=== PATIENT | male | born 1955 | race Caucasian/White ===

== ENCOUNTER → 2019-02-06 | Outpatient (CLI) | payer BC, OTHER ==
--- NOTE | 2019-02-07 06:32 | ECHO ---
DATE OF PROCEDURE: 02/06/2019 DATE OF : 1955 AGE: 64 REFERRING PROVIDER: Dr. Bobbi Wilcox PATIENT LOCATION: Outpatient. REASON FOR THE STUDY: Heart murmur. 2-D MEASUREMENTS: IVS: 1.2 cm LV: 4.1 cm LVPW: 1.2 cm LA: 4.5 cm Aorta: 3.7 cm IVC: 2.0 cm DOPPLER MEASUREMENTS: Peak velocity across the aortic valve: 1.3 m/s Peak velocity across the LVOT: 0.89 m/s Mitral E: 0.82, Mitral A: 0.9 with a ration of 0.9 Maximum tricuspid valve velocity: 2.6 m/s 2-D COMMENTS: 1. Normal left ventricular size with probably mildly increased left ventricular wall thickness. Left ventricular systolic function appeared to be normal, estimated at 60-65%. 2. Mildly enlarged left atrium. Normal right atrium and right ventricle. 3. The atrial septum appeared to be normal without evidence of defect or shunt. 4. Borderline enlarged aortic root at 3.7 cm. 5. Trace pericardial effusion noted, no evidence of cardiac tamponade. 6. Mildly calcified aortic valve with normal leaflet excursion. Normal mitral valve and tricuspid valve. The pulmonic valve appeared to be normal in limited views. The proximal pulmonary artery branches were not well visualized. 7. The inferior vena cava is mildly enlarged, central venous pressure might be elevated. DOPPLER: It detects mild mitral regurgitation and mild tricuspid regurgitation. The calculated pulmonary artery systolic pressure varies between 30-40 mmHg. Abnormal relaxation pattern was noted across the mitral valve leaflets as well as mitral valve annulus consistent with features of grade 1 left ventricular diastolic dysfunction. IMPRESSION: 1. Normal global left ventricular systolic function with probably mild concentric left ventricular hypertrophy. There are some features of grade 1 left ventricular diastolic dysfunction manifested by abnormal relaxation. 2. Aortic valve sclerosis without stenosis or aortic regurgitation. 3. Mild mitral regurgitation with a mildly enlarged left atrium. 4. Mild tricuspid regurgitation with probably mild pulmonary hypertension. 5. Trace pericardial effusion was noted, no evidence of cardiac tamponade. 6. The inferior vena cava was mildly enlarged. 7. Borderline enlarged aortic root at 3.7 cm. [facility]
== END ==
LOC: M CARPUL 10:10
PROVIDERS: ATTEND Family Medicine
DX: R01.1 Cardiac murmur, unspecified (principal)

== ENCOUNTER → 2022-04-27 | Outpatient (REF) | payer OTHER, BC ==
[2022-04-27 19:45] LABS: HEMOGLOBIN A1c 5.8 % (4.0-6.0)
== END ==
LOC: M SFHCWOUN 16:40
PROVIDERS: ATTEND Surgery
DX: E11.621 Type 2 diabetes mellitus with foot ulcer (principal)

== ENCOUNTER 2024-09-23 19:39 | Emergency (ER) | payer MEDICARE, OTHER ==
[~2024-09-23] VITALS: Ht 180.3 cm; Wt 113.6 kg
[2024-09-23] MEDS ORDERED: MIDAZOLAM INJ 2 MG/2 ML VIAL As Ordered ONE (20:11)
[2024-09-23] MEDS: MIDAZOLAM INJ 2 MG/2 ML VIAL IV ONE (20:16)
[2024-09-23] MEDS ORDERED: AMIODARONE 150 MG/3 ML VIAL As Ordered ONE (20:18)
[2024-09-23] MEDS: AMIODARONE HCL 360 MG in IV 1 EA IV SCH (20:20)
[2024-09-23] MEDS ORDERED: AMIODARONE HCL 360 MG/200 ML PREMIXED BAG As Ordered ONE (20:20)
[2024-09-23 20:21] LABS: BASO # 0.1 10^3/uL (0.0-0.2); BASO % 0.8 % (0.0-1.0); EOS # 0.5 10^3/uL (0.0-0.5); EOS % 4.2 % (0.0-3.0); LYMPH # 2.0 10^3/uL (1.5-5.0); LYMPH % 16.4 % (24.0-44.0); MONO # 0.8 10^3/uL (0.0-0.8); MONO % 6.5 % (2.0-8.0); NEUTROPHILS # 8.9 10^3/uL (1.5-8.5); NEUTROPHILS % 71.7 % (36.0-66.0); PLATELET COUNT, AUTOMATED 454 10^3/uL (150-450)
[2024-09-23 20:49] LABS: CK-MB VALUE MASS 4.1 NG/ML (<3.6)
[2024-09-23 20:51] LABS: CALCIUM LEVEL 9.2 MG/DL (8.3-10.6); CARBON DIOXIDE LEVEL 23 MMOL/L (20-31); CHLORIDE LEVEL 107 MMOL/L (98-107); CPK CREATINE PHOSPHOKINASE 209 U/L (46-171); CREATININE FOR GFR 0.88 MG/DL (0.70-1.30); GLOMERULAR FILTRATION RATE > 90.0 (>42); MB/CK RELATIVE INDEX 1.96 (< OR =4); POTASSIUM SERUM 3.9 MMOL/L (3.5-5.1); SODIUM LEVEL 145 MMOL/L (136-145)
[2024-09-23 21:17] LABS: MAGNESIUM LEVEL 2.0 MG/DL (1.8-2.4)
[2024-09-23 21:21] LABS: FREE T4 1.44 NG/DL (0.89-1.76)
[2024-09-23 23:13] LABS: CK-MB VALUE MASS 3.9 NG/ML (<3.6); CPK CREATINE PHOSPHOKINASE 183.0 U/L (46-171); MB/CK RELATIVE INDEX 2.13 (< OR =4)
[2024-09-24 00:30] VITALS: BP 136/63; TEMP 97.9; O2SAT 98
== END 2024-09-24 00:58 | disposition short-term general hospital (02) ==
LOC: M ED 19:39
DX: I47.20 Ventricular tachycardia, unspecified (principal); I45.10 Unspecified right bundle-branch block; I45.2 Bifascicular block; I44.4 Left anterior fascicular block; I10 Essential (primary) hypertension; E78.5 Hyperlipidemia, unspecified; K21.9 Gastro-esophageal reflux disease without esophagitis; Z86.79 Personal history of other diseases of the circulatory system; Z88.8 Allergy status to other drugs, medicaments and biological substances; Z91.030 Bee allergy status; Z91.048 Other nonmedicinal substance allergy status
CPT/HCPCS: 71045; 80048; 82550; 82553; 83735; 84439; 84443; 84484; 85025; 92960; 93005; 93041; 94760; 96374; 96375; 99291; J0282; J2250

== ENCOUNTER → 2024-11-15 | Outpatient (CLI) | payer MEDICARE ==
[~2024-11-15] MED LIST: ISOVUE-370 76% 100 ML VIAL ONE
== END ==
LOC: M PLAIMG 09:23
PROVIDERS: ATTEND Internal Medicine Gastroenterology
DX: R10.32 Left lower quadrant pain (principal); N28.1 Cyst of kidney, acquired; N32.89 Other specified disorders of bladder
CPT/HCPCS: 74177; Q9967

== ENCOUNTER → 2024-12-06 | Outpatient (CLI) | payer MEDICARE | LOC: M RAD 10:05 | PROVIDERS: ATTEND Internal Medicine Gastroenterology | DX: R10.32 Left lower quadrant pain (principal); K51.50 Left sided colitis without complications; R12 Heartburn; K59.00 Constipation, unspecified; R05.3 Chronic cough ==

== ENCOUNTER → 2024-12-27 | Outpatient (REF) | payer MEDICARE | LOC: M SFHCPLAZ 11:24 | PROVIDERS: ATTEND Family Medicine | DX: K51.90 Ulcerative colitis, unspecified, without complications (principal); E11.9 Type 2 diabetes mellitus without complications; Z53.9 Procedure and treatment not carried out, unspecified reason ==